=== PATIENT | male | born 1990 | race Two or more races ===

== ENCOUNTER 2025-03-25 17:11 | Emergency (ER) | payer MEDICAID, SELFPAY ==
[2025-03-25 17:12] VITALS: PULSE 90; RESP 20; O2SAT 99
[2025-03-25 17:45] VITALS: BP 121/78; PULSE 65; RESP 18; TEMP 37.1; O2SAT 98; BMI 29.8
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
[2025-03-25] MEDS: HYDROcodone/APAP 5/325 TABLET 1 TAB PO (19:24)
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
[2025-03-25 22:10] VITALS: RESP 12
== END 2025-03-25 22:10 | disposition home or self-care (01) ==
PROVIDERS: Emergency Provider Emergency Medicine; PCP Family Medicine
DX: S29.012A Strain of muscle and tendon of back wall of thorax, initial encounter (principal); V43.52XA Car driver injured in collision with other type car in traffic accident, initial encounter
CPT/HCPCS: 72128; 72131; 99283; A9270

== ENCOUNTER → 2025-04-28 | Outpatient (CLI) | payer MEDICAID, SELFPAY ==
--- NOTE | 2025-04-28 10:32 | XR_ITS ---
Examination: Hand, right 3 views Technique: Hand AP, oblique, lateral 3 views Date and time of exam: April 28, 2025 1040 hours INDICATIONS: Right hand pain beginning 2 weeks ago. FINDINGS: No fracture or dislocation. 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
== END | disposition home or self-care (01) ==
PROVIDERS: PCP Nurse Practitioner Family; Referring Provider Nurse Practitioner Family; Visit Provider Nurse Practitioner Family
DX: M19.041 Primary osteoarthritis, right hand (principal)
CPT/HCPCS: 73130

== ENCOUNTER → 2025-05-31 | Outpatient (CLI) | payer MEDICAID, SELFPAY ==
--- NOTE | 2025-05-31 | XR_ITS ---
Examination: Hand, right 3 views Technique: Hand AP, oblique, lateral 3 views Date and time of exam: May 31, 2025, 1113 hours INDICATIONS: Right hand pain 1 month FINDINGS: Soft tissue swelling about the second digit Periosteal new bone involving the distal aspect middle phalanx second digit No fracture IMPRESSION: Suspicious for osteomyelitis middle phalanx index finger, consider MRI hand without contrast follow-up
--- NOTE | 2025-05-31 | XR_ITS ---
Examination: Wrist, right 3 views Technique: Wrist AP, oblique, lateral 3 views Date and time of exam: May 31, 2025, 1113 hours INDICATIONS: Right wrist pain beginning 1 month ago. FINDINGS: No fracture or dislocation. No foreign body. No cortical bone destruction IMPRESSION: No fracture or dislocation
== END | disposition home or self-care (01) ==
PROVIDERS: PCP Physician Assistant Medical
DX: M89.8X4 Other specified disorders of bone, hand (principal); M25.531 Pain in right wrist
CPT/HCPCS: 73110; 73130